=== PATIENT | male | born 1990 | race Caucasian/White ===

== ENCOUNTER 2018-08-03 07:08 | Emergency (ER) | payer MEDICAID ==
[~2018-08-03] VITALS: Ht 185.4 cm; Wt 89.8 kg
[~2018-08-03 07:08] MED LIST: ALBU90OI INH; CEPH500 PO; IBUP600 PO; IBUP800 PO; MUPI2TO TOP; PERM5TC TOP; RXOXYACE PO; SULTRIDS PO; TOBR.3OPSO OP; TRAM50 PO
== END 2018-08-03 07:44 | disposition home or self-care (01) ==
LOC: ER 07:08
DX: M25.512 Pain in left shoulder (principal); F17.210 Nicotine dependence, cigarettes, uncomplicated; X58.XXXA Exposure to other specified factors, initial encounter
CPT/HCPCS: 73030; 99283-25

== ENCOUNTER 2018-11-12 20:33 | Emergency (ER) | payer OTHER ==
[~2018-11-12] VITALS: Ht 182.9 cm; Wt 85.3 kg
[2018-11-12] MEDS ORDERED: Bactrim Ds Tab1 EACH PO (21:09)
[2018-11-12] MEDS ORDERED: CEPH500 PO (21:09)
== END 2018-11-12 21:20 | disposition home or self-care (01) ==
LOC: ER 20:33
DX: M27.2 Inflammatory conditions of jaws (principal)
CPT/HCPCS: 10060; 99283-25

== ENCOUNTER 2020-08-13 22:51 | Emergency (ER) | payer OTHER ==
[~2020-08-13] VITALS: Ht 182.9 cm; Wt 88.9 kg
[~2020-08-13 22:51] MED LIST changes: +Bactrim Ds Tab1 EACH PO
== END 2020-08-14 00:51 | disposition home or self-care (01) ==
LOC: ER 22:51
DX: S31.149A Puncture wound of abdominal wall with foreign body, unspecified quadrant without penetration into peritoneal cavity, initial encounter (principal); W34.010A Accidental discharge of airgun, initial encounter
CPT/HCPCS: 74018; 74176; 99284-25

== ENCOUNTER 2021-07-26 13:44 | Emergency (ER) | payer OTHER ==
[~2021-07-26] VITALS: Ht 182.9 cm; Wt 93.0 kg
[2021-07-26] MEDS ORDERED: PENVK500 PO (14:09)
[2021-07-26] MEDS ORDERED: HYDR1TAB94 PO (14:09)
== END 2021-07-26 14:17 | disposition home or self-care (01) ==
LOC: ER 13:44
DX: K02.9 Dental caries, unspecified (principal); F17.210 Nicotine dependence, cigarettes, uncomplicated
CPT/HCPCS: 99282

== ENCOUNTER 2023-04-25 12:15 | Emergency (ER) | payer OTHER ==
[~2023-04-25] VITALS: Ht 175.3 cm; Wt 90.7 kg
[~2023-04-25 12:15] MED LIST changes: +AMOCLA875 PO; +HYDR1TAB94 PO; +PENVK500 PO
[2023-04-25] MEDS ORDERED: IBUP800 PO (15:50)
[2023-04-25 16:20] VITALS: BP 145/63
== END 2023-04-25 16:22 | disposition home or self-care (01) ==
LOC: ER 12:15
DX: S01.81XA Laceration without foreign body of other part of head, initial encounter (principal); S01.01XA Laceration without foreign body of scalp, initial encounter; F17.210 Nicotine dependence, cigarettes, uncomplicated; W20.8XXA Other cause of strike by thrown, projected or falling object, initial encounter
CPT/HCPCS: 12016; 70450; 96372-59; 99283-25; J2270; J2405